=== PATIENT | female | born 1995 | race Caucasian/White ===

== ENCOUNTER 2017-05-22 03:20 | Emergency (ER) | payer OTHER ==
[2017-05-22 03:26] VITALS: TEMP 97.5
[2017-05-22] MEDS ORDERED: MIDAZOLAM 2 MG/2 ML VIAL ONE (03:28)
[2017-05-22] MEDS ORDERED: MIDAZOLAM 2 MG/2 ML VIAL IM ONE (03:28)
--- NOTE | 2017-05-22 03:31 | EDPHY ---
H & P Stated Complaint: ETOH intox HPI/ROS: HPI CHIEF COMPLAINT: Alcohol Intoxication HISTORY OF PRESENT ILLNESS: This patient 21-year-old female, she presents emergency room by EMS. She presents highly intoxicated with alcohol. Slurring her speech smelling of alcohol with horizontal beating nystagmus. She is at multiple attempts tried to get up out of bed in the ER. She is a fall risk. She is unsteady on her gait. She is ataxic. EMS found her after she was found lying on the sidewalk. There is no reported trauma. There is no trauma on exam however she has wet urinated on herself and vomited on herself. She does admit to drinking large amount of alcohol shots and liquor this evening. Past Medical History: Unknown Past Surgical History: Unknown Social History: Admits to large amount of alcohol this evening. [employer] student. Family History: Noncontributory ROS REVIEW OF SYSTEMS: A comprehensive 10 point review of systems is otherwise negative aside from elements mentioned in the history of present illness. Exam Constitutional Intoxicated, triage nursing summary reviewed, vital signs reviewed, Sleepy, smells of alcohol Eyes normal conjunctivae and sclera, horizontal beating nystagmus consistent acute alcohol intoxication, otherwise pupils equal and react to light HENT normal inspection, atraumatic, moist mucus membranes, no epistaxis, neck supple/ no meningismus, no raccoon eyes. Respiratory clear to auscultation bilaterally, normal breath sounds, no respiratory distress, no wheezing. Cardiovascular rate normal, regular rhythm, no murmur, no edema, distal pulses normal. Gastrointestinal soft, non-tender, no rebound, no guarding, normal bowel sounds, no distension, no pulsatile mass. Genitourinary no CVA tenderness. Musculoskeletal no midline vertebral tenderness, full range of motion, no calf swelling, no tenderness of extremities, no meningismus, good pulses, neurovascularly intact. Skin pink, warm, & dry, no rash, skin atraumatic. Neurologic sleepy, intoxicated with alcohol,, alert and oriented x 3, AAOx3, moves all 4 extremities equally, motor intact, sensory intact, CN II-XII intact , , normal vision, normal speech. Psychiatric normal mood/affect. Heme/Lymph/Immune no lymphadenopathy. Differential Diagnosis: Includes but is not limited to in a particular order acute alcohol intoxication, alcohol abuse, dehydration, electrolyte abnormality , nausea vomiting from acute alcohol intoxication Medical Decision Making: Plan for this patient IV establishment IV fluid bolus 1 L normal saline, IV Zofran for nausea, check temperature, removed wet clothes , monitor for worsening of condition and sobriety. Re-evaluation: 0607AM: This patient remains very intoxicated with alcohol. Unable to care for self at this time. No vomiting. She did stand up and urinate all over the Emergency Room ground. She is now placed back in bed. Metabolize her alcohol. 0629AM: Re-evaluation at this time patient resting comfortably. She ambulated well to the bathroom. Clinically much more sober. Stable gait. She is on a [facility] hold. She will be dispositioned to the [facility] for further alcohol recovery. Source: Patient, EMS - Personal History Current Tetanus/Diphtheria Vaccine: Unsure Current Tetanus Diphtheria and Acellular Pertussis (TDAP): Unsure - Medical/Surgical History Hx Asthma: No Hx Chronic Respiratory Disease: No Hx Diabetes: No Hx Cardiac Disease: No Hx Renal Disease: No Hx Cirrhosis: No Hx Alcoholism: No Hx HIV/AIDS: No Hx Splenectomy or Spleen Trauma: No Other PMH: denies - Social History Smoking Status: Unknown if ever smoked Constitutional: Initial Vital Signs Temperature (C) 36.4 C 05/22/17 03:24 Heart Rate 97 05/22/17 03:24 Respiratory Rate 18 05/22/17 03:24 Blood Pressure 108/79 05/22/17 03:24 O2 Sat (%) 99 05/22/17 03:24 O2 Delivery Mode Room Air Allergies/Adverse Reactions: No Known Allergies Allergy (Unverified 05/22/17 03:26) Home Medications: Medication Instructions Recorded NK [No Known Home Meds] 05/22/17 Medical Decision Making - Data Points Laboratory Results: Laboratory Results 05/22/17 04:20 05/22/17 04:20 Sodium 144 mEq/L mEq/L (134-144) Potassium 4.4 mEq/L mEq/L (3.5-5.2) Chloride 109 mEq/L mEq/L (97-110) Carbon Dioxide 19 mEq/l L mEq/l (22-31) Anion Gap 16 mEq/L mEq/L (8-16) BUN 10 mg/dL mg/dL (7-23) Creatinine 0.7 mg/dL mg/dL (0.6-1.0) Estimated GFR > 60 Glucose 69 mg/dL L mg/dL (70-100) Calcium 9.7 mg/dL mg/dL (8.5-10.4) Ethyl Alcohol 314 mg/dL H mg/dL (0-10) Medications Given: Discontinued Medications Sodium Chloride (Ns) 1,000 mls @ 0 mls/hr IV ONCE ONE PRN Reason: Wide Open Stop: 05/22/17 04:30 Last Admin: 05/22/17 04:30 Dose: 1,000 mls Dextrose (D10w) 250 mls @ 0 mls/hr IV EDNOW ONE PRN Reason: Wide Open Stop: 05/22/17 05:45 Last Admin: 05/22/17 05:48 Dose: 250 mls Dextrose (D10w) 250 mls @ 0 mls/hr IV EDNOW ONE PRN Reason: Wide Open Stop: 05/22/17 05:50 Last Admin: 05/22/17 05:50 Dose: 250 mls Midazolam HCl (Versed) 4 mg IM EDNOW ONE Stop: 05/22/17 03:29 Last Admin: 05/22/17 03:40 Dose: 4 mg Midazolam HCl (Versed) 2 mg IVP EDNOW ONE Stop: 05/22/17 04:30 Last Admin: 05/22/17 04:31 Dose: 2 mg Ondansetron HCl (Zofran) 4 mg IVP EDNOW ONE Stop: 05/22/17 04:30 Last Admin: 05/22/17 04:31 Dose: 4 mg Departure - Departure Disposition: Home, Routine, Self-Care Clinical Impression: Alcoholic intoxication Qualifiers: Complication of substance-induced condition: uncomplicated Qualified Code(s): F10.920 - Alcohol use, unspecified with intoxication, uncomplicated Condition: Good Instructions: Alcohol Intoxication (ED), Abuse of Alcohol (ED) Referrals: Patient,NotPresent [Primary Care Provider] - As per Instructions
[2017-05-22] MEDS ORDERED: ONDANSETRON 4 MG/2 ML VIAL ONE (03:58)
[2017-05-22] MEDS ORDERED: NS 1,000 ML IV ONE (04:29)
[2017-05-22] MEDS ORDERED: ONDANSETRON 4 MG/2 ML VIAL IVP ONE (04:29)
[2017-05-22] MEDS ORDERED: MIDAZOLAM 2 MG/2 ML VIAL IVP ONE (04:29)
[2017-05-22 04:41] VITALS: BP 121/98; PULSE 94
[2017-05-22 05:21] LABS: ANION GAP 16 mEq/L (8-16); CALCIUM 9.7 mg/dL (8.5-10.4); CARBON DIOXIDE 19 mEq/l (22-31); CHLORIDE 109 mEq/L (97-110); CREATININE 0.7 mg/dL (0.6-1.0); GLOMERULAR FILTRATION RATE > 60; GLUCOSE 69 mg/dL (70-100); POTASSIUM 4.4 mEq/L (3.5-5.2); SODIUM 144 mEq/L (134-144)
[2017-05-22 05:28] LABS: ETHANOL SERUM 314 mg/dL (0-10)
[2017-05-22] MEDS ORDERED: D10W 250 ML IV ONE ×2 (05:44→05:49)
[2017-05-22 07:41] VITALS: RESP 18; O2SAT 121
--- NOTE | 2017-05-22 14:41 | ASDISCHSUM ---
Discharge Information Plan Status: Medically Cleared to Leave: Discharge Date:05/22/2017 07:39 AM CM D/C Disposition: ADT D/C Disposition:Home, Routine, Self-Care Projected Discharge Date:05/22/2017 07:39 AM Transportation at D/C: Discharge Delay Reason: Follow-Up Date:05/22/2017 07:39 AM Discharge Slot: Final Diagnosis: Placement Information Patient Contact Information Contact Name:LEON Relationship:Sister Address: Work Phone: City: [facility] Phone: State/Zip Code: Email: Financial Information Financial Class:HMO and PPO Plans Primary Plan Desc:[employer] PPO POS HMO SIG ADM Primary Plan Number:[id number] Secondary Plan Desc: Secondary Plan Number: Assessment Information Intervention Information
== END 2017-05-22 07:39 | disposition home or self-care (01) ==
DX: F10.920 Alcohol use, unspecified with intoxication, uncomplicated (principal)
CPT/HCPCS: 96365; G0480; J2250; J2405